=== PATIENT | male | born 1940 | race Caucasian/White ===

== ENCOUNTER 2020-06-03 | Emergency (ER) | payer MEDICARE, BC ==
[2020-06-03] MEDS ORDERED: CARVEDILOL25 MG PO (14:40)
== END 2020-06-03 16:40 | disposition home or self-care (01) ==
DX: K59.00 Constipation, unspecified (principal); I10 Essential (primary) hypertension; K21.9 Gastro-esophageal reflux disease without esophagitis; Z87.891 Personal history of nicotine dependence

== ENCOUNTER 2021-01-03 21:21 | Emergency (ER) | payer MEDICARE, BC ==
[~2021-01-03] VITALS: Ht 177.8 cm; Wt 86.0 kg
[~2021-01-03 21:21] MED LIST: CARVEDILOL25 MG PO
[2021-01-03 22:39] LABS: HEMATOCRIT 44.9 % (39.0-50.0); HEMOGLOBIN 15.2 g/dl (14.0-18.0); IMMATURE GRANULOCYTES 0.1 % (0.0-5.0); MEAN CELL VOLUME 94.3 fL CALC (80.0-100.0); MEAN CORPUSCULAR HGB 31.9 pG CALC (26.0-32.0); MEAN CORPUSCULAR HGB CONC 33.9 g/dL CAL (32.0-36.0); NEUT# 4.52 thou/uL (1.82-7.42); RED BLOOD COUNT 4.76 mill/uL (4.70-6.10); RED CELL DISTRI WIDTH 12.5 % (11.5-15.5)
[2021-01-03 22:54] LABS: ALBUMIN 4.6 g/dL (3.2-5.0); ALKALINE PHOSPHATASE 60 u/l (38-126); BILIRUBIN, TOTAL 1.3 mg/dL (0.0-1.4); BUN 12 mg/dL (8-23); BUN/CREATININE RATIO 15 (12-20 (CALC)); CARBON DIOXIDE 30 mmol/l (22-30); CHLORIDE 94 mmol/l (95-108); CREATININE 0.8 mg/dL (0.7-1.3); GFR > 60 ML/MIN (>=60 (CALC)); GFR FOR AFR.AMER. > 60 ML/MIN (>=60 (CALC)); POTASSIUM 4.3 mmol/l (3.5-5.1); SGOT/AST 27 u/l (19-48); TOTAL PROTEIN 8.1 g/dL (6.3-8.2)
[2021-01-03 22:55] LABS: ANION GAP 10 (6-22 (CALC)); SODIUM 130 mmol/l (137-146)
[2021-01-03 23:06] LABS: MYOGLOBIN 37 ng/mL (0 - 121)
[2021-01-03] MEDS ORDERED: ZPAK PO (23:13)
[2021-01-03] MEDS ORDERED: MEDDOSEPAK PO (23:13)
[2021-01-03 23:18] VITALS: BP 149/74
[2021-01-03 23:28] LABS: URINE BILIRUBIN - DIPSTICK NEGATIVE (NEGATIVE); URINE BLOOD DIPSTICK NEGATIVE (NEGATIVE); URINE COLOR YELLOW; URINE GLUCOSE - DIPSTICK NEGATIVE (NEGATIVE); URINE KETONE NEGATIVE (NEGATIVE); URINE LEUK ESTERASE NEGATIVE (NEGATIVE); URINE PH 6.5 (4.5-8.0); URINE PROTEIN - DIPSTICK NEGATIVE (NEG-TRACE); URINE UROBILINOGEN - DIPSTICK 0.2 E.U./dL (0.2)
[2021-01-03 23:33] LABS: URINE NITRITE - DIPSTICK NEGATIVE (Negative)
== END 2021-01-03 23:40 | disposition home or self-care (01) ==
LOC: ED 21:21
PROVIDERS: Emergency Medicine
DX: J44.1 Chronic obstructive pulmonary disease with (acute) exacerbation (principal); I10 Essential (primary) hypertension; K21.9 Gastro-esophageal reflux disease without esophagitis; H35.30 Unspecified macular degeneration; Z87.891 Personal history of nicotine dependence; Z20.822 Contact with and (suspected) exposure to COVID-19

== ENCOUNTER 2021-01-24 09:05 | Observation (INO) | payer MEDICARE, BC ==
[~2021-01-24] VITALS: Ht 177.8 cm; Wt 80.0 kg
[~2021-01-24 09:05] MED LIST changes: +MEDDOSEPAK PO; +ZPAK PO
[2021-01-24 10:39] LABS: HEMOGLOBIN 13.7 g/dl (14.0-18.0); IMMATURE GRANULOCYTES 0.6 % (0.0-5.0); MEAN CORPUSCULAR HGB 32.4 pG CALC (26.0-32.0); NEUT# 3.7 thou/uL (1.82-7.42); RED BLOOD COUNT 4.23 mill/uL (4.70-6.10); RED CELL DISTRI WIDTH 13.4 % (11.5-15.5)
[2021-01-24 10:44] LABS: MEAN CELL VOLUME 87.5 fL CALC (80.0-100.0)
[2021-01-24 11:21] LABS: ALBUMIN 3.8 g/dL (3.2-5.0); ALKALINE PHOSPHATASE 68 u/l (38-126); BILIRUBIN, TOTAL 1.3 mg/dL (0.0-1.4); BUN 5 mg/dL (8-23); BUN/CREATININE RATIO 11 (12-20 (CALC)); CARBON DIOXIDE 26 mmol/l (22-30); CHLORIDE 90 mmol/l (95-108); CREATININE 0.5 mg/dL (0.7-1.3); GFR > 60 ML/MIN (>=60 (CALC)); GFR FOR AFR.AMER. > 60 ML/MIN (>=60 (CALC)); POTASSIUM 3.9 mmol/l (3.5-5.1); TOTAL PROTEIN 7.2 g/dL (6.3-8.2)
[2021-01-24 11:27] LABS: ANION GAP 11 (6-22 (CALC)); SGOT/AST 63 u/l (19-48); SODIUM 123 mmol/l (137-146)
[2021-01-24 18:43] VITALS: BP 140/75
[2021-01-25 00:15] VITALS: BP 148/78
[2021-01-25 04:00] VITALS: BP 142/79
[2021-01-25 04:55] LABS: HEMATOCRIT 38.3 % (39.0-50.0); HEMOGLOBIN 14.1 g/dl (14.0-18.0); MEAN CELL VOLUME 86.7 fL CALC (80.0-100.0); MEAN CORPUSCULAR HGB 31.9 pG CALC (26.0-32.0); MEAN CORPUSCULAR HGB CONC 36.8 g/dL CAL (32.0-36.0); NEUT# 2.2 thou/uL (1.82-7.42); RED BLOOD COUNT 4.42 mill/uL (4.70-6.10); RED CELL DISTRI WIDTH 12.4 % (11.5-15.5)
[2021-01-25 05:05] LABS: ALBUMIN 3.5 g/dL (3.2-5.0); ALKALINE PHOSPHATASE 68 u/l (38-126); ANION GAP 13 (6-22 (CALC)); BILIRUBIN, TOTAL 1.2 mg/dL (0.0-1.4); BUN 6 mg/dL (8-23); BUN/CREATININE RATIO 12 (12-20 (CALC)); CARBON DIOXIDE 23 mmol/l (22-30); CHLORIDE 95 mmol/l (95-108); CREATININE 0.5 mg/dL (0.7-1.3); GFR > 60 ML/MIN (>=60 (CALC)); GFR FOR AFR.AMER. > 60 ML/MIN (>=60 (CALC)); POTASSIUM 4.2 mmol/l (3.5-5.1); SGOT/AST 53 u/l (19-48); SODIUM 127 mmol/l (137-146); TOTAL PROTEIN 6.5 g/dL (6.3-8.2)
[2021-01-25 07:45] VITALS: BP 164/89
[2021-01-25] MEDS ORDERED: ZPAK PO (10:45)
[2021-01-25] MEDS ORDERED: MEDDOSEPAK PO (10:45)
[2021-01-25 10:57] VITALS: BP 186/88
[2021-01-25 11:41] VITALS: BP 156/73
== END 2021-01-25 12:55 | disposition home or self-care (01) ==
LOC: ED 09:05 → ED-I 12:50 → ED 13:26 → MS2 13:27
PROVIDERS: Family Medicine; ADMIT Internal Medicine; ATTEND Internal Medicine
DX: U07.1 COVID-19 (principal); J12.82 Pneumonia due to coronavirus disease 2019; E87.1 Hypo-osmolality and hyponatremia; J43.9 Emphysema, unspecified; I10 Essential (primary) hypertension; K21.9 Gastro-esophageal reflux disease without esophagitis; Z87.891 Personal history of nicotine dependence; Z99.81 Dependence on supplemental oxygen
CPT/HCPCS: G0378; Q9967

== ENCOUNTER 2021-01-26 14:55 | Inpatient (IN) | payer MEDICARE, BC ==
[~2021-01-26] VITALS: Ht 177.8 cm; Wt 81.0 kg
[2021-01-26 16:59] LABS: HEMOGLOBIN 15.3 g/dl (14.0-18.0); IMMATURE GRANULOCYTES 0.9 % (0.0-5.0); MEAN CELL VOLUME 87.1 fL CALC (80.0-100.0); MEAN CORPUSCULAR HGB 31.7 pG CALC (26.0-32.0); MEAN CORPUSCULAR HGB CONC 36.4 g/dL CAL (32.0-36.0); NEUT# 9.42 thou/uL (1.82-7.42); RED BLOOD COUNT 4.82 mill/uL (4.70-6.10); RED CELL DISTRI WIDTH 12.6 % (11.5-15.5)
[2021-01-26 17:04] LABS: ALBUMIN 4.3 g/dL (3.2-5.0); ALKALINE PHOSPHATASE 77 u/l (38-126); ANION GAP 13 (6-22 (CALC)); BILIRUBIN, TOTAL 1.9 mg/dL (0.0-1.4); BUN 12 mg/dL (8-23); BUN/CREATININE RATIO 20 (12-20 (CALC)); CARBON DIOXIDE 25 mmol/l (22-30); CHLORIDE 92 mmol/l (95-108); CREATININE 0.6 mg/dL (0.7-1.3); GFR > 60 ML/MIN (>=60 (CALC)); GFR FOR AFR.AMER. > 60 ML/MIN (>=60 (CALC)); POTASSIUM 3.8 mmol/l (3.5-5.1); SGOT/AST 98 u/l (19-48); SODIUM 126 mmol/l (137-146); TOTAL PROTEIN 8.1 g/dL (6.3-8.2)
[2021-01-26 20:55] VITALS: BP 170/81
[2021-01-27] VITALS: BP 156/80
[2021-01-27 04:00] VITALS: BP 153/79
[2021-01-27 04:40] LABS: HEMATOCRIT 38.4 % (39.0-50.0); HEMOGLOBIN 14.1 g/dl (14.0-18.0); MEAN CELL VOLUME 86.7 fL CALC (80.0-100.0); MEAN CORPUSCULAR HGB 31.8 pG CALC (26.0-32.0); MEAN CORPUSCULAR HGB CONC 36.7 g/dL CAL (32.0-36.0); NEUT# 5.58 thou/uL (1.82-7.42); RED BLOOD COUNT 4.43 mill/uL (4.70-6.10); RED CELL DISTRI WIDTH 12.5 % (11.5-15.5)
[2021-01-27 05:02] LABS: ALBUMIN 3.7 g/dL (3.2-5.0); ALKALINE PHOSPHATASE 63 u/l (38-126); ANION GAP 13 (6-22 (CALC)); BILIRUBIN, TOTAL 1.5 mg/dL (0.0-1.4); BUN 9 mg/dL (8-23); BUN/CREATININE RATIO 18 (12-20 (CALC)); C-REACTIVE PROTEIN 0.5 mg/dL (0-0.9); CARBON DIOXIDE 23 mmol/l (22-30); CHLORIDE 92 mmol/l (95-108); CREATININE 0.5 mg/dL (0.7-1.3); GFR > 60 ML/MIN (>=60 (CALC)); GFR FOR AFR.AMER. > 60 ML/MIN (>=60 (CALC)); POTASSIUM 4.2 mmol/l (3.5-5.1); SGOT/AST 63 u/l (19-48); SODIUM 124 mmol/l (137-146); TOTAL PROTEIN 6.7 g/dL (6.3-8.2)
[2021-01-27] MEDS ORDERED: OMEPRAZOLE DR40 MG PO (09:07)
[2021-01-27] MEDS ORDERED: SERTRALINE50 MG PO (09:07)
[2021-01-27] MEDS ORDERED: CIALIS5 MG PO (09:09)
[2021-01-27] MEDS ORDERED: ZPAK PO (09:10)
[2021-01-27] MEDS ORDERED: ANORO ELLIPTA 61 AER IN (09:10)
[2021-01-27] MEDS ORDERED: MEDDOSEPAK PO (09:10)
[2021-01-27] MEDS ORDERED: TAMSULOSIN HCL0.4 MG PO (09:11)
[2021-01-27] MEDS ORDERED: COREG25 MG PO (09:11)
[2021-01-27 11:52] VITALS: BP 159/81
[2021-01-27 14:55] VITALS: BP 147/85
[2021-01-27 19:35] VITALS: BP 140/72
[2021-01-28 00:05] VITALS: BP 129/71
[2021-01-28 04:00] VITALS: BP 141/68
[2021-01-28 04:29] LABS: HEMATOCRIT 38.2 % (39.0-50.0); HEMOGLOBIN 14.2 g/dl (14.0-18.0); MEAN CORPUSCULAR HGB CONC 37.2 g/dL CAL (32.0-36.0); RED BLOOD COUNT 4.44 mill/uL (4.70-6.10); RED CELL DISTRI WIDTH 12.3 % (11.5-15.5)
[2021-01-28 04:42] LABS: ALBUMIN 3.5 g/dL (3.2-5.0); ALKALINE PHOSPHATASE 57 u/l (38-126); ANION GAP 13 (6-22 (CALC)); BILIRUBIN, TOTAL 1.7 mg/dL (0.0-1.4); BUN 16 mg/dL (8-23); BUN/CREATININE RATIO 28 (12-20 (CALC)); CARBON DIOXIDE 24 mmol/l (22-30); CHLORIDE 89 mmol/l (95-108); CREATININE 0.6 mg/dL (0.7-1.3); GFR > 60 ML/MIN (>=60 (CALC)); GFR FOR AFR.AMER. > 60 ML/MIN (>=60 (CALC)); MAGNESIUM 1.9 mg/dL (1.6-2.3); SGOT/AST 61 u/l (19-48); SODIUM 122 mmol/l (137-146); TOTAL PROTEIN 6.5 g/dL (6.3-8.2)
[2021-01-28 08:40] VITALS: BP 144/73
[2021-01-28 10:30] VITALS: BP 147/74
[2021-01-28] MEDS ORDERED: LEVAQUIN750 M1 PO (10:54)
[2021-01-28] MEDS ORDERED: DEXAMETHASON6 MG PO (10:55)
== END 2021-01-28 13:05 | disposition home or self-care (01) | DRG 177 ==
LOC: ED 14:55 → ED-I 18:53 → ED 19:04 → MS2 19:05
PROVIDERS: Emergency Medicine; ADMIT Hospitalist; ATTEND Hospitalist
PROC: XW033E5 Introduction of Remdesivir Anti-infective into Peripheral Vein, Percutaneous Approach, New Technology Group 5 (ICD-10-PCS; principal; 2021-01-27)
DX: U07.1 COVID-19 (principal); J12.82 Pneumonia due to coronavirus disease 2019; J96.01 Acute respiratory failure with hypoxia; E87.1 Hypo-osmolality and hyponatremia; J43.9 Emphysema, unspecified; I10 Essential (primary) hypertension; K21.9 Gastro-esophageal reflux disease without esophagitis; F32.9 Major depressive disorder, single episode, unspecified; N40.0 Benign prostatic hyperplasia without lower urinary tract symptoms; Z87.891 Personal history of nicotine dependence; Z99.81 Dependence on supplemental oxygen; R06.02 Shortness of breath; R05.9 Cough, unspecified
CPT/HCPCS: G0378; J1650; Q9967

== ENCOUNTER 2021-03-10 23:55 | Emergency (ER) | payer MEDICARE, BC ==
[~2021-03-10] VITALS: Ht 177.8 cm; Wt 81.8 kg
[~2021-03-10 23:55] MED LIST changes: +ANORO ELLIPTA 61 AER IN; +CIALIS5 MG PO; +COREG25 MG PO; +DEXAMETHASON6 MG PO; +LEVAQUIN750 M1 PO; +OMEPRAZOLE DR40 MG PO; +SERTRALINE50 MG PO; +TAMSULOSIN HCL0.4 MG PO
[2021-03-11 00:52] LABS: HEMATOCRIT 40.7 % (39.0-50.0); HEMOGLOBIN 13.7 g/dl (14.0-18.0); IMMATURE GRANULOCYTES 1.1 % (0.0-5.0); MEAN CORPUSCULAR HGB 31.5 pG CALC (26.0-32.0); MEAN CORPUSCULAR HGB CONC 33.7 g/dL CAL (32.0-36.0); NEUT# 3.64 thou/uL (1.82-7.42); RED BLOOD COUNT 4.35 mill/uL (4.70-6.10)
[2021-03-11 00:56] LABS: MEAN CELL VOLUME 93.6 fL CALC (80.0-100.0)
[2021-03-11 00:58] VITALS: BP 124/70
[2021-03-11 01:09] LABS: ALBUMIN 4.2 g/dL (3.2-5.0); ALKALINE PHOSPHATASE 54 u/l (38-126); ANION GAP 12 (6-22 (CALC)); BILIRUBIN, TOTAL 1.5 mg/dL (0.0-1.4); BUN 9 mg/dL (8-23); BUN/CREATININE RATIO 12 (12-20 (CALC)); CARBON DIOXIDE 25 mmol/l (22-30); CHLORIDE 95 mmol/l (95-108); CREATININE 0.8 mg/dL (0.7-1.3); GFR > 60 ML/MIN (>=60 (CALC)); GFR FOR AFR.AMER. > 60 ML/MIN (>=60 (CALC)); POTASSIUM 4.2 mmol/l (3.5-5.1); SGOT/AST 29 u/l (19-48); SODIUM 128 mmol/l (137-146); TOTAL PROTEIN 7.5 g/dL (6.3-8.2)
[2021-03-11 01:21] LABS: MYOGLOBIN 30 ng/mL (0 - 121)
[2021-03-11] MEDS ORDERED: MEDDOSEPAK PO (02:28)
[2021-03-11] MEDS ORDERED: ZITHROMAX250 MG PO (02:28)
== END 2021-03-11 03:05 | disposition home or self-care (01) ==
LOC: ED 23:55
PROVIDERS: Emergency Medicine
DX: J43.9 Emphysema, unspecified (principal); I10 Essential (primary) hypertension; H35.30 Unspecified macular degeneration; Z87.891 Personal history of nicotine dependence; Z20.822 Contact with and (suspected) exposure to COVID-19

== ENCOUNTER 2022-09-13 18:57 | Observation (INO) | payer MEDICARE, BC ==
[~2022-09-13] VITALS: Ht 177.8 cm; Wt 92.0 kg
[2022-09-13] VITALS (15 sets, daily range): BP systolic 137–173; BP diastolic 65–93
[~2022-09-13 18:57] MED LIST changes: +ZITHROMAX250 MG PO
[2022-09-13 19:59] LABS: BASO% 0.3 % (0-3); EOS% 0.5 % (0-8); HEMATOCRIT 42.8 % (39.0-50.0); HEMOGLOBIN 14.5 g/dl (14.0-18.0); IMMATURE GRANULOCYTES 0.7 % (0.0-5.0); LYMPH% 10.5 % (15-41); MEAN CELL VOLUME 91.8 fL CALC (80.0-100.0); MEAN CORPUSCULAR HGB 31.1 pG CALC (26.0-32.0); MEAN CORPUSCULAR HGB CONC 33.9 g/dL CAL (32.0-36.0); MONO% 11.4 % (2-13); NEUT# 7.99 thou/uL (1.82-7.42); NEUT% 76.6 % (42-76); RED BLOOD COUNT 4.66 mill/uL (4.70-6.10); RED CELL DISTRI WIDTH 13.3 % (11.5-15.5)
[2022-09-13 20:10] LABS: ALBUMIN 4.6 g/dL (3.2-5.0); ALKALINE PHOSPHATASE 56 u/l (38-126); ANION GAP 16 (6-22 (CALC)); BILIRUBIN, TOTAL 1.6 mg/dL (0.2-1.3); BUN 18 mg/dL (8-23); BUN/CREATININE RATIO 20 (12-20 (CALC)); CARBON DIOXIDE 25 mmol/l (22-30); CHLORIDE 89 mmol/l (95-108); CREATININE 0.9 mg/dL (0.7-1.3); GFR FOR AFR.AMER. > 60 ML/MIN (>=60 (CALC)); GFR OTHER RACES > 60 ML/MIN (>=60 (CALC)); POTASSIUM 3.8 mmol/l (3.5-5.1); SGOT/AST 26 u/l (19-48); SODIUM 127 mmol/l (137-146); TOTAL PROTEIN 7.8 g/dL (6.3-8.2)
[2022-09-13] MEDS ORDERED: POTASSIUM CHLO10 ME4 PO (20:37)
[2022-09-13] MEDS ORDERED: PRAVASTATIN SOD20 MG PO (20:38)
[2022-09-13] MEDS ORDERED: PLAVIX75 MG PO (20:39)
[2022-09-13] MEDS ORDERED: LASIX 40 MG TAB40 MG PO (20:39)
[2022-09-13] MEDS ORDERED: VITAMIN C1000 MG PO (20:40)
[2022-09-13] MEDS ORDERED: ASPIRINCHW 81MG PO (20:40)
[2022-09-13] MEDS ORDERED: PRESERVISION PO (20:41)
[2022-09-13] MEDS ORDERED: MUCINEX600 MG PO (20:41)
[2022-09-13] MEDS ORDERED: LEVOFLOXACIN750 MG PO (20:48)
[2022-09-13] MEDS ORDERED: PREDNISONE20 MG PO (20:49)
[2022-09-13 21:36] LABS: URINE BILIRUBIN - DIPSTICK NEGATIVE (NEGATIVE); URINE BLOOD DIPSTICK NEGATIVE (NEGATIVE); URINE COLOR YELLOW; URINE GLUCOSE - DIPSTICK NEGATIVE (NEGATIVE); URINE KETONE NEGATIVE (NEGATIVE); URINE LEUK ESTERASE NEGATIVE (NEGATIVE); URINE PH 6.5 (4.5-8.0); URINE PROTEIN - DIPSTICK NEGATIVE (NEG-TRACE); URINE UROBILINOGEN - DIPSTICK 0.2 E.U./dL (0.2)
[2022-09-13 21:40] LABS: URINE NITRITE - DIPSTICK NEGATIVE (Negative)
[2022-09-14 05:04] VITALS: BP 143/73
[2022-09-14 07:03] VITALS: BP 143/68
[2022-09-14 10:35] VITALS: BP 141/79
[2022-09-14] MEDS ORDERED: [UNRECOGNIZED DRUG - OTHER] PO (11:06)
== END 2022-09-14 10:45 | disposition home or self-care (01) ==
LOC: ED 18:57 → ED-I 21:52 → ED 21:59 → MS2 22:00
PROVIDERS: Emergency Medicine; ADMIT Internal Medicine; ATTEND Internal Medicine
DX: R41.0 Disorientation, unspecified (principal); I10 Essential (primary) hypertension; J43.9 Emphysema, unspecified; H35.30 Unspecified macular degeneration; Z87.891 Personal history of nicotine dependence
CPT/HCPCS: Q9967

== ENCOUNTER 2023-09-20 12:37 | Emergency (ER) | payer MEDICARE, BC ==
[2023-09-20] VITALS (13 sets, daily range): BP systolic 109–158; BP diastolic 63–75
[~2023-09-20] VITALS: Ht 177.8 cm; Wt 88.0 kg
[~2023-09-20 12:37] MED LIST changes: +ASPIRINCHW 81MG PO; +LASIX 40 MG TAB40 MG PO; +LEVOFLOXACIN750 MG PO; +MUCINEX600 MG PO; +PLAVIX75 MG PO; +POTASSIUM CHLO10 ME4 PO; +PRAVASTATIN SOD20 MG PO; +PREDNISONE20 MG PO; +PRESERVISION PO; +VITAMIN C1000 MG PO; +[UNRECOGNIZED DRUG - OTHER] PO
[2023-09-20] MEDS ORDERED: methylPREDNISolone SODIUM SUCC 125 MG/2 ML SDV IV ONE (13:10)
[2023-09-20] MEDS ORDERED: IPRATROPIUM-Albuterol 0.5MG-2.5MG/3 ML NEB ONE (13:10)
[2023-09-20 13:40] LABS: BASO% 0.6 % (0-3); EOS% 2.4 % (0-8); HEMATOCRIT 43.9 % (39.0-50.0); HEMOGLOBIN 14.7 g/dl (14.0-18.0); IMMATURE GRANULOCYTES 0.4 % (0.0-5.0); MEAN CELL VOLUME 92.2 fL CALC (80.0-100.0); MEAN CORPUSCULAR HGB 30.9 pG CALC (26.0-32.0); MEAN CORPUSCULAR HGB CONC 33.5 g/dL CAL (32.0-36.0); MONO% 6.4 % (2-13); NEUT# 5.76 thou/uL (1.82-7.42); NEUT% 80.2 % (42-76); RED BLOOD COUNT 4.76 mill/uL (4.70-6.10); RED CELL DISTRI WIDTH 13.1 % (11.5-15.5)
[2023-09-20 13:41] LABS: ALBUMIN 4.6 g/dL (3.2-5.0); ALKALINE PHOSPHATASE 62 u/l (38-126); ANION GAP 12 (6-22 (CALC)); BILIRUBIN, TOTAL 1.9 mg/dL (0.2-1.3); BUN 10 mg/dL (8-23); BUN/CREATININE RATIO 15 (12-20 (CALC)); CARBON DIOXIDE 29 mmol/l (22-30); CHLORIDE 93 mmol/l (95-108); CREATININE 0.7 mg/dL (0.7-1.3); ESTIMATED GFR 92 ML/MIN (>=90 (CALC)); POTASSIUM 4.6 mmol/l (3.5-5.1); SGOT/AST 31 u/l (19-48); SODIUM 130 mmol/l (137-146); TOTAL PROTEIN 8.4 g/dL (6.3-8.2)
[2023-09-20] MEDS ORDERED: ZPAK PO (15:41)
[2023-09-20] MEDS ORDERED: PREDNISONE20 MG PO (15:41)
== END 2023-09-20 16:00 | disposition home or self-care (01) ==
LOC: ED 12:37
PROVIDERS: Family Medicine
DX: J44.1 Chronic obstructive pulmonary disease with (acute) exacerbation (principal); I10 Essential (primary) hypertension; K21.9 Gastro-esophageal reflux disease without esophagitis; Z87.891 Personal history of nicotine dependence; Z20.822 Contact with and (suspected) exposure to COVID-19

== ENCOUNTER 2024-04-10 08:55 | Emergency (ER) | payer MEDICARE, BC ==
[~2024-04-10] VITALS: Ht 177.8 cm; Wt 86.1 kg
[2024-04-10] VITALS (8 sets, daily range): BP systolic 129–173; BP diastolic 63–109
[2024-04-10] MEDS ORDERED: methylPREDNISolone SODIUM SUCC 125 MG/2 ML SDV IV ONE (09:10)
[2024-04-10] MEDS ORDERED: IPRATROPIUM-Albuterol 0.5MG-2.5MG/3 ML NEB ONE ×2 (09:10→09:15)
[2024-04-10 09:39] LABS: EOS% 6.7 % (0-8); HEMATOCRIT 41.4 % (39.0-50.0); HEMOGLOBIN 13.7 g/dl (14.0-18.0); IMMATURE GRANULOCYTES 0.4 % (0.0-5.0); LYMPH% 15.2 % (15-41); MEAN CELL VOLUME 94.5 fL CALC (80.0-100.0); MEAN CORPUSCULAR HGB 31.3 pG CALC (26.0-32.0); MEAN CORPUSCULAR HGB CONC 33.1 g/dL CAL (32.0-36.0); MONO% 11.8 % (2-13); NEUT# 4.56 thou/uL (1.82-7.42); NEUT% 64.9 % (42-76); RED BLOOD COUNT 4.38 mill/uL (4.70-6.10); RED CELL DISTRI WIDTH 13.4 % (11.5-15.5)
[2024-04-10 10:04] LABS: ALBUMIN 4.2 g/dL (3.2-5.0); ALKALINE PHOSPHATASE 57 u/l (38-126); ANION GAP 10 (6-22 (CALC)); BILIRUBIN, TOTAL 1.6 mg/dL (0.2-1.3); BUN 11 mg/dL (8-23); BUN/CREATININE RATIO 16 (12-20 (CALC)); CARBON DIOXIDE 31 mmol/l (22-30); CHLORIDE 91 mmol/l (95-108); CREATININE 0.7 mg/dL (0.7-1.3); ESTIMATED GFR 92 ML/MIN (>=90 (CALC)); POTASSIUM 4.1 mmol/l (3.5-5.1); SGOT/AST 36 u/l (19-48); SODIUM 128 mmol/l (137-146); TOTAL PROTEIN 7.2 g/dL (6.3-8.2)
[2024-04-10] MEDS ORDERED: PREDNISONE50 MG PO (10:38)
[2024-04-10] MEDS ORDERED: DOXYCYCLINE100 MG PO (10:38)
[2024-04-10] MEDS ORDERED: IPRATROPIU0.5 MG/3 M IN (10:38)
== END 2024-04-10 10:57 | disposition home or self-care (01) ==
LOC: ED 08:55
PROVIDERS: Family Medicine
DX: J44.1 Chronic obstructive pulmonary disease with (acute) exacerbation (principal); J43.9 Emphysema, unspecified; I10 Essential (primary) hypertension; Z87.891 Personal history of nicotine dependence; Z20.822 Contact with and (suspected) exposure to COVID-19

== ENCOUNTER 2024-04-27 18:55 | Inpatient (IN) | payer MEDICARE, BC ==
[~2024-04-27] VITALS: Ht 177.8 cm; Wt 86.7 kg
[2024-04-27] VITALS (9 sets, daily range): BP systolic 122–159; BP diastolic 63–88
[~2024-04-27 18:55] MED LIST changes: +ATORVASTATIN CA10 MG PO; +DOXYCYCLINE100 MG PO; +IPRATROPIU0.5 MG/3 M IN; -PRAVASTATIN SOD20 MG PO; +PREDNISONE50 MG PO
[2024-04-27] MEDS ORDERED: ALBUTEROL SULFATE 2.5 MG VIAL IN ONE (19:35)
[2024-04-27] MEDS ORDERED: IPRATROPIUM-Albuterol 0.5MG-2.5MG/3 ML NEB ONE (19:35)
[2024-04-27 19:58] LABS: BASO% 0.6 % (0-3); EOS% 6.3 % (0-8); HEMATOCRIT 39.4 % (39.0-50.0); HEMOGLOBIN 13.8 g/dl (14.0-18.0); IMMATURE GRANULOCYTES 0.6 % (0.0-5.0); LYMPH% 11.8 % (15-41); MEAN CELL VOLUME 90.4 fL CALC (80.0-100.0); MEAN CORPUSCULAR HGB 31.7 pG CALC (26.0-32.0); MONO% 12.1 % (2-13); NEUT# 4.7 thou/uL (1.82-7.42); NEUT% 68.6 % (42-76); RED BLOOD COUNT 4.36 mill/uL (4.70-6.10); RED CELL DISTRI WIDTH 13.2 % (11.5-15.5)
[2024-04-27 20:09] LABS: ALBUMIN 3.9 g/dL (3.2-5.0); ALKALINE PHOSPHATASE 56 u/l (38-126); ANION GAP 11 (6-22 (CALC)); BILIRUBIN, TOTAL 1.2 mg/dL (0.2-1.3); BUN 14 mg/dL (8-23); BUN/CREATININE RATIO 24 (12-20 (CALC)); CARBON DIOXIDE 30 mmol/l (22-30); CHLORIDE 88 mmol/l (95-108); CREATININE 0.6 mg/dL (0.7-1.3); ESTIMATED GFR 96 ML/MIN (>=90 (CALC)); LIPASE 133 u/l (23-300); POTASSIUM 3.9 mmol/l (3.5-5.1); SGOT/AST 32 u/l (19-48); SODIUM 125 mmol/l (137-146); TOTAL PROTEIN 6.8 g/dL (6.3-8.2)
[2024-04-27] MEDS ORDERED: AZITHROMYCIN 500 MG in SODIUM CHLORIDE 0.9% 500 ML IV ONE (22:30)
[2024-04-27] MEDS ORDERED: SODIUM CHLORIDE 0.9% 1,000 ML IV ONE (22:30)
[2024-04-28] MEDS ORDERED: IPRATROPIUM-Albuterol 0.5MG-2.5MG/3 ML IN PRN (01:20)
[2024-04-28] MEDS ORDERED: SODIUM CHLORIDE 0.9% 1,000 ML IV SCH (02:10)
[2024-04-28 04:09] VITALS: BP 142/71
[2024-04-28 04:10] VITALS: BP 155/58
[2024-04-28] MEDS ORDERED: CEFEPIME HYDROCHLORIDE 2 GM in SODIUM CHLORIDE 0.9% 100 ML IV SCH (05:00)
[2024-04-28] MEDS ORDERED: methylPREDNISolone Sod Succ 40 MG/ML SDV IV SCH (06:00)
[2024-04-28 07:00] VITALS: BP 141/69
[2024-04-28] MEDS ORDERED: REMDESIVIR 200 MG in SODIUM CHLORIDE 0.9% 250 ML IV ONE (07:00)
[2024-04-28] MEDS ORDERED: DOXYCYCLINE HYCLATE 100 MG/CAP PO SCH (09:00)
[2024-04-28] MEDS ORDERED: ROPINIROLE0.5 MG PO (09:58)
[2024-04-28] MEDS ORDERED: PRAMIPEXOLE D0.25 MG PO (09:58)
[2024-04-28] MEDS ORDERED: HYDROXYZ HCL25 MG PO (09:59)
[2024-04-28 10:07] LABS: BILIRUBIN, TOTAL 1.3 mg/dL (0.2-1.3); CREATININE 0.5 mg/dL (0.7-1.3); POTASSIUM 4.3 mmol/l (3.5-5.1)
[2024-04-28] MEDS ORDERED: REMDESIVIR 200 MG in SODIUM CHLORIDE 0.9% 210 ML IV SCH (11:00)
[2024-04-28 12:34] LABS: URINE BILIRUBIN - DIPSTICK Negative (NEGATIVE); URINE BLOOD DIPSTICK Negative (NEGATIVE); URINE GLUCOSE - DIPSTICK Negative (NEGATIVE); URINE KETONE Negative (NEGATIVE); URINE LEUK ESTERASE Negative (NEGATIVE); URINE NITRITE - DIPSTICK Negative (Negative); URINE PROTEIN - DIPSTICK Negative (NEG-TRACE); URINE SPECIFIC GRAVITY 1.015; URINE UROBILINOGEN - DIPSTICK 0.2 E.U./dL (0.2)
[2024-04-28 12:36] LABS: URINE COLOR Yellow
[2024-04-28 16:32] LABS: ALBUMIN 4.1 g/dL (3.2-5.0); BILIRUBIN, TOTAL 1.1 mg/dL (0.2-1.3); CREATININE 0.5 mg/dL (0.7-1.3)
[2024-04-28 18:19] VITALS: BP 151/70
[2024-04-28] MEDS ORDERED: ATORVASTATIN CALCIUM 40 MG/TAB PO SCH (21:00)
[2024-04-29 04:28] VITALS: BP 158/67
[2024-04-29 05:13] LABS: ALBUMIN 3.7 g/dL (3.2-5.0); BILIRUBIN, TOTAL 1.2 mg/dL (0.2-1.3); CREATININE 0.5 mg/dL (0.7-1.3); MAGNESIUM 1.9 mg/dL (1.6-2.3); TOTAL PROTEIN 6.5 g/dL (6.3-8.2)
[2024-04-29 05:23] LABS: BASO% 0.2 % (0-3); HEMATOCRIT 41.1 % (39.0-50.0); HEMOGLOBIN 14.2 g/dl (14.0-18.0); IMMATURE GRANULOCYTES 0.4 % (0.0-5.0); LYMPH% 10.1 % (15-41); MEAN CELL VOLUME 92.2 fL CALC (80.0-100.0); MEAN CORPUSCULAR HGB 31.8 pG CALC (26.0-32.0); MEAN CORPUSCULAR HGB CONC 34.5 g/dL CAL (32.0-36.0); MONO% 5.6 % (2-13); NEUT# 4.65 thou/uL (1.82-7.42); NEUT% 83.7 % (42-76); RED BLOOD COUNT 4.46 mill/uL (4.70-6.10); RED CELL DISTRI WIDTH 13.1 % (11.5-15.5)
[2024-04-29 06:10] VITALS: BP 168/76
[2024-04-29] MEDS ORDERED: TAMSULOSIN HCL 0.4 MG CAP PO SCH (09:00)
[2024-04-29] MEDS ORDERED: ASPIRIN 81 MG/TAB PO SCH (09:00)
[2024-04-29] MEDS ORDERED: VANTIN200 M1 PO (09:29)
[2024-04-29] MEDS ORDERED: PAXLOVID PO (09:29)
[2024-04-29] MEDS ORDERED: VIBRAMYCIN100 M2 PO (09:29)
[2024-04-29] MEDS ORDERED: PREDNISONE10 MG PO (09:32)
[2024-04-29] MEDS ORDERED: SOD CHLORIDE1 GM PO (09:37)
[2024-04-29] MEDS ORDERED: SODIUM CHLORIDE 0.9% 1,000 ML IV SCH (10:00)
[2024-04-29] MEDS ORDERED: REMDESIVIR 100 MG in SODIUM CHLORIDE 0.9% 230 ML IV SCH (14:00)
[2024-05-01] MEDS ORDERED: LEVOFLOXACIN750 MG PO (09:26)
== END 2024-04-29 12:22 | disposition home or self-care (01) | DRG 177 ==
LOC: ED 18:55 → ED-I 22:22 → ED 22:34 → MS2 22:35
PROVIDERS: Family Medicine; ADMIT Internal Medicine; ATTEND Internal Medicine
DX: U07.1 COVID-19 (principal); J12.82 Pneumonia due to coronavirus disease 2019; J44.0 Chronic obstructive pulmonary disease with (acute) lower respiratory infection; E87.1 Hypo-osmolality and hyponatremia; J44.1 Chronic obstructive pulmonary disease with (acute) exacerbation; R09.02 Hypoxemia; I11.0 Hypertensive heart disease with heart failure; I50.9 Heart failure, unspecified; J43.9 Emphysema, unspecified; R00.1 Bradycardia, unspecified; H35.30 Unspecified macular degeneration; Z87.891 Personal history of nicotine dependence; Z99.81 Dependence on supplemental oxygen; T50.906A Underdosing of unspecified drugs, medicaments and biological substances, initial encounter; Z91.128 Patient's intentional underdosing of medication regimen for other reason
CPT/HCPCS: J0456; J0692; J0696